=== PATIENT | female | born 1990 | race Caucasian/White ===

== ENCOUNTER 2022-06-07 10:18 | Emergency (ER) | payer OTHER ==
[~2022-06-07] VITALS: Ht 157.5 cm; Wt 59.1 kg
[2022-06-07] MEDS ORDERED: LIDOCAINE 5% TRANSDERMAL PATCH TD ONE (11:00)
[2022-06-07] MEDS ORDERED: CYCLOBENZAPRINE HCL 10 MG TABLET PO ONE (11:00)
[2022-06-07] MEDS ORDERED: KETOROLAC TROMETHAMINE 60 MG/2 ML VIAL IM ONE (11:00)
[2022-06-07] MEDS ORDERED: IBUP-1492 PO (11:21)
[2022-06-07] MEDS ORDERED: CYCL-448 PO (11:21)
[2022-06-07 12:03] VITALS: BP 110/64
== END 2022-06-07 12:04 | disposition home or self-care (01) ==
LOC: EMS 10:27
DX: M62.838 Other muscle spasm (principal); Z98.890 Other specified postprocedural states; Z91.011 Allergy to milk products
CPT/HCPCS: 99283; 96372; J1885

== ENCOUNTER 2022-09-29 07:50 | Emergency (ER) | payer OTHER ==
[~2022-09-29] VITALS: Ht 157.5 cm; Wt 59.1 kg
[~2022-09-29 07:50] MED LIST: ACET-66 PO; MAG30ORA11 PO; MECL-134 PO; ONDA-104 PO
[2022-09-29 07:53] VITALS: BP 105/61; PULSE 83; RESP 18; TEMP 99.6
[2022-09-29 08:04] LABS: COVID AG,FIA SOURCE NASAL SWAB
[2022-09-29 08:45] LABS: INFLUENZA TYPE A NEGATIVE FOR TYPE A (NEGATIVE); INFLUENZA TYPE B NEGATIVE FOR TYPE B (NEGATIVE)
[2022-09-29] MEDS ORDERED: AMOX500C2 PO (09:26)
[2022-09-29] MEDS ORDERED: PROMETHAZINE HCL/CODEINE 6.25-10MG/5ML SOLUTION UDCUP PO ONE (09:30)
[2022-09-29] MEDS ORDERED: PRED-554 PO ×2 (09:30→10:34)
[2022-09-29] MEDS ORDERED: OXYMETAZOLINE HCL 0.05% 15 ML NASAL SPRAY NASAL ONE (09:30)
[2022-09-29] MEDS ORDERED: AMOX500T2 PO (10:34)
== END 2022-09-29 10:40 | disposition home or self-care (01) ==
LOC: EMS 07:58
DX: J32.9 Chronic sinusitis, unspecified (principal); Z98.890 Other specified postprocedural states; Z91.011 Allergy to milk products; Z20.822 Contact with and (suspected) exposure to COVID-19
CPT/HCPCS: 87804; 99283